=== PATIENT | female | born 1995 | race Caucasian/White ===

== ENCOUNTER 2021-09-21 21:14 | Observation (INO) ==
[2021-09-21 20:03] LABS: Bilirubin,Urine Negative (Negative); Blood,Urine Negative (Negative); Clarity,Urine Clear (Clear); Color,Urine Light-Yellow (Yellow); Glucose,Urine (UA) Normal (Normal); Ketones,Urine 10 mg/dL (Negative); Leukocyte Esterase,Urine Negative (Negative); Nitrite,Urine Negative (Negative); PH,Urine 6.5 pH Units (5.0-8.0); Protein,Urine Trace mg/dL (Neg-Trace); Specific Gravity,Urine 1.026 (1.010-1.025); Urobilinogen,Urine Normal (Normal)
[2021-09-21 21:17] LABS: Candida DNA Not Detected (Not Detect); Gardnerella DNA Not Detected (Not Detect); Trichomonas DNA Not Detected (Not Detect)
== END 2021-09-21 21:24 | disposition home or self-care (01) ==
LOC: 1NENULAB → UNDODISOB 21:14
PROVIDERS: ADMIT Registered Nurse; ATTEND Registered Nurse

== ENCOUNTER → 2021-11-15 20:51 | Observation (INO) ==
[2021-11-15 20:02] LABS: Bilirubin,Urine Negative (Negative); Blood,Urine Negative (Negative); Clarity,Urine Clear (Clear); Color,Urine Colorless (Yellow); Glucose,Urine (UA) Normal (Normal); Ketones,Urine Negative (Negative); Leukocyte Esterase,Urine Negative (Negative); Nitrite,Urine Negative (Negative); Protein,Urine Negative (Neg-Trace); Specific Gravity,Urine 1.009 (1.010-1.025); Urobilinogen,Urine Normal (Normal)
[2021-11-15 20:03] LABS: Basophils % 0.4 %; Eosinophils # 0.1 K/mcL (0.0-0.6); Eosinophils % 1.4 %; Hematocrit 32.2 % (35.3-44.9); Hemoglobin 10.7 g/dL (11.5-15.4); Immature Granulocytes % 0.8 % (0-4); Lymphocytes # 1.7 K/mcL (0.6-4.6); Lymphocytes % 19.7 %; Mean Corpuscular HGB Conc 33.2 g/dL (31.6-35.5); Mean Corpuscular Hemoglobin 29.2 pg (28.0-33.3); Mean Corpuscular Volume 87.7 fL (83.0-100.0); Mean Platelet Volume 12.5 fL (9.4-12.4); Monocytes # 0.6 K/mcL (0.0-1.3); Monocytes % 7.1 %; Platelet Count 221 K/mcL (140-400); Red Blood Count 3.67 M/mcL (3.82-4.97); Red Cell Distribution Width 13.4 % (11.5-14.5); Segmented Neutrophils % 70.6 %; White Blood Count 8.6 K/mcL (4.3-11.1)
[2021-11-15 20:10] LABS: Protein/Creatinine Ratio,Urine 0.15 mg/mg (0.00-0.20)
[2021-11-15 20:21] LABS: Alanine Aminotransferase 23 Units/L (7-52); Aspartate Amino Transferase 48 Units/L (13-39); BUN/Creatinine Ratio 18 (6-26); Blood Urea Nitrogen 8 mg/dL (6-20); Lactate Dehydrogenase 149 Units/L (140-271); Uric Acid 3.9 mg/dL (2.3-7.6); eGFR For African Americans > 60 (> 60); eGFR For Non-African Americans > 60 (> 60)
== END | disposition home or self-care (01) ==
LOC: 1NENULAB
PROVIDERS: ADMIT Advanced Practice Midwife; ATTEND Advanced Practice Midwife

== ENCOUNTER 2021-11-23 19:44 | Inpatient (IN) ==
[2021-11-23 18:14] LABS: Protein/Creatinine Ratio,Urine 0.17 mg/mg (0.00-0.20)
[2021-11-23 18:17] LABS: Amorphous Sediment,Urine Few per hpf (None-Few); Bacteria,Urine Few per hpf (None-Few); Bilirubin,Urine Negative (Negative); Blood,Urine Negative (Negative); Clarity,Urine Turbid (Clear); Color,Urine Light-Yellow (Yellow); Glucose,Urine (UA) Normal (Normal); Ketones,Urine Negative (Negative); Leukocyte Esterase,Urine Negative (Negative); Mucus,Urine Few per lpf (None-Few); Nitrite,Urine Negative (Negative); Protein,Urine Trace mg/dL (Neg-Trace); RBC,Urine 0-3 per hpf (0-3); Specific Gravity,Urine 1.022 (1.010-1.025); Squamous Epithelial Cell,Urine Few per hpf (None-Few); Urobilinogen,Urine Normal (Normal)
[2021-11-23 18:46] LABS: Basophils % 0.2 %; Eosinophils # 0.1 K/mcL (0.0-0.6); Eosinophils % 1.2 %; Hematocrit 30.3 % (35.3-44.9); Hemoglobin 9.8 g/dL (11.5-15.4); Immature Granulocytes % 0.9 % (0-4); Lymphocytes # 1.7 K/mcL (0.6-4.6); Lymphocytes % 16.7 %; Mean Corpuscular HGB Conc 32.3 g/dL (31.6-35.5); Mean Corpuscular Hemoglobin 28.3 pg (28.0-33.3); Mean Corpuscular Volume 87.6 fL (83.0-100.0); Mean Platelet Volume 12.5 fL (9.4-12.4); Monocytes # 0.5 K/mcL (0.0-1.3); Monocytes % 5.3 %; Neutrophils # 7.8 K/mcL (1.6-8.9); Platelet Count 185 K/mcL (140-400); Red Blood Count 3.46 M/mcL (3.82-4.97); Red Cell Distribution Width 13.2 % (11.5-14.5); Segmented Neutrophils % 75.7 %; White Blood Count 10.3 K/mcL (4.3-11.1)
[2021-11-23 18:53] LABS: Alanine Aminotransferase 13 Units/L (7-52); Aspartate Amino Transferase 19 Units/L (13-39); BUN/Creatinine Ratio 19 (6-26); Blood Urea Nitrogen 11 mg/dL (6-20); Lactate Dehydrogenase 128 Units/L (140-271); Uric Acid 4.3 mg/dL (2.3-7.6); eGFR For African Americans > 60 (> 60); eGFR For Non-African Americans > 60 (> 60)
[~2021-11-23 19:44] MED LIST: Acetaminophen 325 MG TABLET PO ONE; Azithromycin 500 MG in 0.9 % Sodium Chloride 250 ML IVPB PRN; EPHEDrine 50 MG/ML VIAL IVP PRN; Famotidine 20 MG/2 ML VIAL IVP PRN; Metoclopramide 10 MG/2 ML VIAL IVP PRN; Naloxone 0.4 MG/ML INJ IVP PRN; Ondansetron 4 MG/2 ML VIAL IVP PRN
[2021-11-23] MEDS ORDERED: Oxytocin 20 units/ LR 1000 mL 20 UNIT/1,000 ML BAG IVC SCH (20:45)
[2021-11-23 20:49] LABS: Amphetamine Screen,Urine Negative ng/mL (Cutoff=1000); Barbiturate Screen,Urine Negative ng/mL (Cutoff=200); Benzodiazepines Screen,Urine Negative ng/mL (Cutoff=200); Cannabinoid Screen,Urine Negative ng/mL (Cutoff = 50); Cocaine Screen,Urine Negative ng/mL (Cutoff= 300); Opiate Screen,Urine Negative ng/mL (Cutoff=300); Phencyclidine Screen,Urine Negative ng/mL (Cutoff=25)
[2021-11-23] MEDS: Ringers Solution, Lactated 1,000 ML IVC SCH (21:10)
[2021-11-23 21:16] LABS: Influenza A PCR Negative (Negative); Influenza B PCR Negative (Negative); Resp. Syncytial Virus PCR Negative (Negative)
[2021-11-23 21:26] LABS: SARS-CoV-2 by PCR (In House) Positive (Negative)
[2021-11-24] MEDS: Ringers Solution, Lactated 1,000 ML IVC SCH ×2 (11:50→16:10)
[2021-11-24] MEDS: Epidural Premix (fent/bupiv) 110 ML EP SCH ×2 (12:00→18:36)
[2021-11-24] MEDS ORDERED: Lanolin 7 G OINT...G. TP PRN (23:04)
[2021-11-24] MEDS ORDERED: Rho Immune Globulin 1,500 UNIT SYRINGE IM PRN (23:04)
[2021-11-24] MEDS ORDERED: Measles/Mumps/Rubella Vacc 0.5 ML VIAL SQ PRN (23:04)
[2021-11-24] MEDS ORDERED: Benzocaine/Menthol 56 GM AEROSOL SPRAY TP PRN (23:04)
[2021-11-24] MEDS ORDERED: Ondansetron ODT 4 MG TAB.RAPDIS SL PRN (23:04)
[2021-11-24] MEDS ORDERED: Oxytocin 20 units/ LR 1000 mL 20 UNIT/1,000 ML BAG IVC SCH (23:15)
[2021-11-24] MEDS: Acetaminophen 325 MG TABLET PO SCH (23:35)
[2021-11-25] MEDS: Ibuprofen 600 MG TABLET PO SCH ×4 (01:53→23:19)
[2021-11-25 05:01] LABS: Basophils % 0.1 %; Eosinophils % 0.1 %; Hematocrit 24.6 % (35.3-44.9); Immature Granulocytes % 0.5 % (0-4); Mean Corpuscular HGB Conc 33.3 g/dL (31.6-35.5); Mean Corpuscular Hemoglobin 29.3 pg (28.0-33.3); Mean Corpuscular Volume 87.9 fL (83.0-100.0); Mean Platelet Volume 12.9 fL (9.4-12.4); Monocytes # 0.5 K/mcL (0.0-1.3); Monocytes % 2.9 %; Neutrophils # 15.5 K/mcL (1.6-8.9); Platelet Count 187 K/mcL (140-400); Red Cell Distribution Width 13.5 % (11.5-14.5); Segmented Neutrophils % 90.4 %
[2021-11-25 05:04] LABS: Hemoglobin 8.2 g/dL (11.5-15.4); White Blood Count 17.1 K/mcL (4.3-11.1)
[2021-11-25] MEDS: *HR* HYDROcodone/Acet 5/325 mg TABLET PO PRN ×4 (05:34→23:20)
[2021-11-25] MEDS: Levothyroxine 25 MCG TABLET PO SCH (05:34)
[2021-11-25] MEDS: Prenatal Vit/FA 1 EACH TABLET PO SCH (08:25)
[2021-11-25] MEDS ORDERED: PRENATAL PO SCH (09:00)
[2021-11-25] MEDS: Acetaminophen 325 MG TABLET PO SCH ×2 (15:55→23:19)
[2021-11-26 00:28] VITALS: TEMP 97.8
[2021-11-26] MEDS: Ibuprofen 600 MG TABLET PO SCH ×2 (05:08→11:12)
[2021-11-26] MEDS: *HR* HYDROcodone/Acet 5/325 mg TABLET PO PRN ×2 (05:09→11:13)
[2021-11-26] MEDS: Acetaminophen 325 MG TABLET PO SCH ×2 (05:11→11:13)
[2021-11-26 06:14] VITALS: BP 126/83; O2SAT 100
[2021-11-26] MEDS: Prenatal Vit/FA 1 EACH TABLET PO SCH (08:02)
[2021-11-26] MEDS: Levothyroxine 25 MCG TABLET PO SCH (08:02)
[2021-11-26 17:05] VITALS: PULSE 84
== END 2021-11-26 11:50 | disposition home or self-care (01) | DRG 768 ==
LOC: 1NENULAB → 1NENUOBS 11-25 02:15
PROVIDERS: ADMIT Registered Nurse; ATTEND Registered Nurse

== ENCOUNTER 2021-11-29 02:55 | Inpatient (IN) ==
[2021-11-29] MEDS ORDERED: Isovue-370 500 ML BOTTLE IVP ONE (04:14)
[2021-11-29 04:37] LABS: Basophils % 0.3 %; Eosinophils # 0.2 K/mcL (0.0-0.6); Eosinophils % 3.1 %; Hematocrit 20.5 % (35.3-44.9); Hemoglobin 6.6 g/dL (11.5-15.4); Immature Granulocytes % 1.9 % (0-4); Lymphocytes # 1.2 K/mcL (0.6-4.6); Lymphocytes % 16.4 %; Mean Corpuscular HGB Conc 32.2 g/dL (31.6-35.5); Mean Corpuscular Hemoglobin 29.3 pg (28.0-33.3); Mean Corpuscular Volume 91.1 fL (83.0-100.0); Monocytes # 0.3 K/mcL (0.0-1.3); Monocytes % 4.4 %; Neutrophils # 5.5 K/mcL (1.6-8.9); Nucleated Red Blood Cells 0.3 /100 WBC (0); Platelet Count 230 K/mcL (140-400); Red Blood Count 2.25 M/mcL (3.82-4.97); Segmented Neutrophils % 73.9 %; White Blood Count 7.5 K/mcL (4.3-11.1)
[2021-11-29 04:38] LABS: Bacteria,Urine Few per hpf (None-Few); Bilirubin,Urine Negative (Negative); Blood,Urine Large (Negative); Clarity,Urine Turbid (Clear); Color,Urine Light-Yellow (Yellow); Glucose,Urine (UA) Normal (Normal); Ketones,Urine Negative (Negative); Leukocyte Esterase,Urine Large (Negative); Mucus,Urine Few per lpf (None-Few); Nitrite,Urine Negative (Negative); Protein,Urine Trace mg/dL (Neg-Trace); Specific Gravity,Urine 1.012 (1.010-1.025); Squamous Epithelial Cell,Urine Few per hpf (None-Few); Urobilinogen,Urine Normal (Normal); WBC,Urine 50-100 per hpf (0-3)
[2021-11-29 04:45] LABS: INR 0.9; Prothrombin Time 10.2 Seconds (9.4-12.1)
[2021-11-29 04:45] LABS: Protein/Creatinine Ratio,Urine 0.6 mg/mg (0.00-0.20)
[2021-11-29 04:59] LABS: Alanine Aminotransferase 19 Units/L (7-52); Albumin 3.4 g/dL (3.5-5.7); Albumin/Globulin Ratio 1.4 (1.1-2.2); Alkaline Phosphatase 97 Units/L (34-104); Aspartate Amino Transferase 29 Units/L (13-39); BUN/Creatinine Ratio 24 (6-26); Bilirubin,Indirect 0.2 mg/dL (0.0-1.0); Bilirubin,Total 0.2 mg/dL (0.3-1.0); Blood Urea Nitrogen 14 mg/dL (6-20); Calcium 8.7 mg/dL (8.6-10.3); Carbon Dioxide 27 mEq/L (23-29); Chloride 104 mEq/L (98-107); Globulin 2.5 g/dL (2.4-3.5); Glucose 102 mg/dL (70-105); Osmolality,Calculated 285 (280-300); Sodium 137 mEq/L (136-145); Total Protein 5.9 g/dL (6.4-8.9); Troponin I < 0.03 ng/mL (< 0.04); eGFR For African Americans > 60 (> 60); eGFR For Non-African Americans > 60 (> 60)
[2021-11-29] MEDS ORDERED: Acetaminophen 325 MG TABLET PO PRN (07:06)
[2021-11-29] MEDS ORDERED: Piperacillin/Tazobactam 3.375 GM in 0.9 % Sodium Chloride Mini Bag 100 ML IVPB SCH (08:00)
[2021-11-29] MEDS: Ibuprofen 600 MG TABLET PO PRN ×3 (08:05→22:23)
[2021-11-29] MEDS: Magnesium Sulf 20 gm/SW 500mL 20 GM/500 ML IV.SOLN IVC SCH ×2 (08:05→17:27)
[2021-11-29] MEDS: *HR* HYDROcodone/Acet 5/325 mg TABLET PO PRN ×3 (08:06→20:56)
[2021-11-29] MEDS: Vancomycin 1,500 MG/265 ML IV.SOLN IVPB SCH ×2 (08:56→21:04)
[2021-11-29] MEDS ORDERED: Calcium Gluconate 1,000 MG/10 ML VIAL IVP PRN (11:16)
[2021-11-29] MEDS ORDERED: 0.9 % Sodium Chloride 250 ML ONE (13:55)
[2021-11-29] MEDS: Ondansetron ODT 4 MG TAB.RAPDIS SL PRN (16:10)
[2021-11-29] MEDS: Piperacillin/Tazobactam 3.375 GM in 0.9 % Sodium Chloride Mini Bag 100 ML IVPB SCH (18:15)
[2021-11-30] MEDS: Piperacillin/Tazobactam 3.375 GM in 0.9 % Sodium Chloride Mini Bag 100 ML IVPB SCH ×3 (01:09→19:00)
[2021-11-30] MEDS: *HR* HYDROcodone/Acet 5/325 mg TABLET PO PRN ×3 (01:10→11:09)
[2021-11-30] MEDS: Ondansetron ODT 4 MG TAB.RAPDIS SL PRN (02:05)
[2021-11-30] MEDS: Magnesium Sulf 20 gm/SW 500mL 20 GM/500 ML IV.SOLN IVC SCH (03:23)
[2021-11-30] MEDS: Ibuprofen 600 MG TABLET PO PRN ×2 (04:41→20:44)
[2021-11-30 06:45] LABS: Basophils % 0.1 %; Eosinophils # 0.2 K/mcL (0.0-0.6); Eosinophils % 2.4 %; Hematocrit 24.5 % (35.3-44.9); Hemoglobin 7.9 g/dL (11.5-15.4); Lymphocytes # 1.3 K/mcL (0.6-4.6); Lymphocytes % 15.4 %; Mean Corpuscular HGB Conc 32.2 g/dL (31.6-35.5); Mean Corpuscular Hemoglobin 29.6 pg (28.0-33.3); Mean Corpuscular Volume 91.8 fL (83.0-100.0); Monocytes # 0.5 K/mcL (0.0-1.3); Monocytes % 5.9 %; Neutrophils # 5.9 K/mcL (1.6-8.9); Nucleated Red Blood Cells 0.4 /100 WBC (0); Platelet Count 272 K/mcL (140-400); Red Blood Count 2.67 M/mcL (3.82-4.97); Red Cell Distribution Width 14.5 % (11.5-14.5); Segmented Neutrophils % 72.2 %; White Blood Count 8.2 K/mcL (4.3-11.1)
[2021-11-30] MEDS: Vancomycin 1,500 MG/265 ML IV.SOLN IVPB SCH (09:03)
[2021-11-30] MEDS ORDERED: *HR* FentaNYL (PF) 100 MCG/2 ML VIAL ONE ×2 (12:14→13:11)
[2021-11-30] MEDS ORDERED: *HR* Propofol 200 MG/20 ML VIAL IVP ONE ×3 (12:14→13:38)
[2021-11-30] MEDS ORDERED: *HR* Midazolam HCl 2 MG/2 ML VIAL ONE (12:14)
[2021-11-30] MEDS ORDERED: Lidocaine -MPF 2% 5 ML VIAL ONE (12:16)
[2021-11-30] MEDS ORDERED: Ondansetron 4 MG/2 ML VIAL ONE (12:16)
[2021-11-30] MEDS ORDERED: *HR* Succinylcholine 200 MG/10 ML VIAL IVP ONE (12:16)
[2021-11-30] MEDS ORDERED: Bupivacaine/EPI 1:200k 0.25% 50 ML VIAL ONE (12:19)
[2021-11-30] MEDS ORDERED: *HR* Belladonna Alkaloids/Opium 30 MG RECTAL SUPPOSITORY RC ONE (12:19)
[2021-11-30] MEDS ORDERED: Ketamine HCL *QUVA* 50mg (1mL) SYRINGE ONE (13:37)
[2021-11-30] MEDS ORDERED: Ringers Solution, Lactated 1,000 ML IVC SCH (15:15)
[2021-11-30] MEDS: NIFEdipine XL (24 HR) 30 MG TAB.ER.24 PO SCH (15:48)
[2021-11-30] MEDS: *HR* OxyCODONE/APAP 5/325 TABLET PO PRN ×2 (15:59→20:44)
[2021-11-30] MEDS ORDERED: Simethicone 80 MG TAB.CHEW PO PRN (19:35)
[2021-11-30 20:52] LABS: Basophils % 0.3 %; Eosinophils # 0.1 K/mcL (0.0-0.6); Eosinophils % 0.4 %; Hematocrit 24.9 % (35.3-44.9); Hemoglobin 7.9 g/dL (11.5-15.4); Lymphocytes # 0.9 K/mcL (0.6-4.6); Mean Corpuscular HGB Conc 31.7 g/dL (31.6-35.5); Mean Corpuscular Hemoglobin 28.3 pg (28.0-33.3); Mean Corpuscular Volume 89.2 fL (83.0-100.0); Mean Platelet Volume 10.5 fL (9.4-12.4); Monocytes # 0.3 K/mcL (0.0-1.3); Monocytes % 2.2 %; Neutrophils # 9.5 K/mcL (1.6-8.9); Platelet Count 315 K/mcL (140-400); Red Blood Count 2.79 M/mcL (3.82-4.97); Red Cell Distribution Width 14.4 % (11.5-14.5); Segmented Neutrophils % 85.1 %; White Blood Count 11.2 K/mcL (4.3-11.1)
[2021-11-30] MEDS ORDERED: Vancomycin 1,750 MG/517.5 ML IV.SOLN IVPB SCH (23:00)
[2021-12-01] MEDS: *HR* OxyCODONE/APAP 5/325 TABLET PO PRN ×3 (01:06→11:26)
[2021-12-01] MEDS: Piperacillin/Tazobactam 3.375 GM in 0.9 % Sodium Chloride Mini Bag 100 ML IVPB SCH (02:57)
[2021-12-01] MEDS: Ibuprofen 600 MG TABLET PO PRN (02:58)
[2021-12-01] MEDS: Ondansetron ODT 4 MG TAB.RAPDIS SL PRN (06:32)
[2021-12-01 06:52] VITALS: BP 121/79; PULSE 89; TEMP 98.3; O2SAT 100
[2021-12-01] MEDS: NIFEdipine XL (24 HR) 30 MG TAB.ER.24 PO SCH (07:59)
[2021-12-01] MEDS ORDERED: Vancomycin 2,000 MG/520 ML IV.SOLN IVPB SCH (10:00)
== END 2021-12-01 12:50 | disposition home or self-care (01) | DRG 769 ==
LOC: EMEROOARM 02:55 → 1NENUOBS 02:55
PROVIDERS: ADMIT Obstetrics & Gynecology; ATTEND Obstetrics & Gynecology